=== PATIENT | male | born 1990 | race Caucasian/White ===

== ENCOUNTER 2018-03-14 01:59 | Observation (INO) | payer BC ==
--- NOTE | 2018-03-14 02:19 | CPEKG ---
Heart Rate: 105 RR Interval: 571 P-R Interval: 156 QRSD Interval: 98 QT Interval: 328 QTC Interval: 434 P [place]: 58 QRS [place]: 18 T Wave [place]: 27 EKG Severity - OTHERWISE NORMAL ECG - EKG Impression: SINUS TACHYCARDIA Electronically Signed By: Sweta Roman 14-Mar-2018 05:57:02
[2018-03-14 02:34] LABS: PLATELET COUNT 239 10^3/uL (150-400)
[2018-03-14] MEDS ORDERED: IPRATROPIUM/ALBUTEROL 3 ML DEYVIAL IH ONE (02:35)
--- NOTE | 2018-03-14 02:44 | EDPHY ---
H & P Stated Complaint: SOB TODAY, CHEST PAIN ON INSPIRATION Time Seen by Provider: 03/14/18 02:15 HPI/ROS: HPI The patient presents with chest pain and shortness of breath which has been present for the last approximately 1 day. He began to notice it while at rest yesterday afternoon. It became progressively worse over the course of the day and is worse with exertion such is walking 1 block. This is associated with pleuritic chest pain which he feels in his anterior, left greater than right chest. He has not been coughing, he does not have any rhinorrhea or sore throat. He denies any fever. He took an airplane here from [place] 2 days ago. Prior to this he was suffering from diarrhea which is now resolved. He denies any leg swelling. He does not have any personal or family history of DVT or PE.. REVIEW OF SYSTEMS Constitutional: No fever, no chills. Eyes: No discharge. ENT: No sore throat. Cardiovascular: Positive for chest pain, no palpitations. Respiratory: No cough, positive for shortness of breath. Gastrointestinal: No abdominal pain, no vomiting. Genitourinary: No hematuria. Musculoskeletal: No back pain. Skin: No rashes. Neurological: No headache. PMHx: Healthy Soc Hx: Nonsmoker, no drug use, visiting from [place] Family history: No CAD, no DVT or PE PHYSICAL General Appearance: Alert, no distress Eyes: Pupils equal and round no pallor or injection ENT, Mouth: Mucous membranes moist Respiratory: There are no retractions, lungs are clear to auscultation Cardiovascular: Tachycardic rate and regular rhythm Gastrointestinal: Abdomen is soft and non-tender, no masses, bowel sounds normal Neurological: A&O, moves all extremities Skin: Warm and dry, no rashes Musculoskeletal: Neck is supple non tender Extremities: symmetrical, full range of motion Psychiatric: Patient is oriented X 3, there is no agitation Source: Patient Exam Limitations: No limitations - Personal History Current Tetanus/Diphtheria Vaccine: Unsure - Medical/Surgical History Hx Asthma: No Hx Chronic Respiratory Disease: No Hx Diabetes: No Hx Cardiac Disease: No Hx Renal Disease: No Hx Cirrhosis: No Hx Alcoholism: No Hx HIV/AIDS: No Hx Splenectomy or Spleen Trauma: No Other PMH: CYST ON SHOULDER - Social History Smoking Status: Never smoked Constitutional: Initial Vital Signs Temperature (C) 37.2 C 03/14/18 02:02 Heart Rate 107 H 03/14/18 02:02 Respiratory Rate 22 H 03/14/18 02:02 Blood Pressure 101/64 03/14/18 02:02 O2 Sat (%) 95 03/14/18 02:02 O2 Delivery Mode Room Air O2 (L/minute) 2 Allergies/Adverse Reactions: No Known Allergies Allergy (Unverified 03/14/18 02:02) Medical Decision Making - Diagnostics EKG Interpretation: EKG: Complete interpretation has been separately recorded in the [facility] archive. Summary impression: Sinus tachycardia leftward axis deviation,, normal intervals, ST segment elevation in V2 with slight [place] elevation in AVR Imaging Results: Chest x-ray two view shows no cardiomegaly, no effusion, no infiltrate, interpreted by me, radiology interpretation is pending. Imaging: I viewed and interpreted images myself Procedures: Bedside cardiac Ultrasound- performed and interpreted by me. Indication: Chest pain, positive troponin Findings: Normal cardiac activity, no pericardial effusion, no B lines Impression: No pericardial effusion Differential Diagnosis: This is a 27-year-old healthy male who presents with about 1 day of shortness of breath and pleuritic chest pain. He was sick with a diarrheal illness a few days ago. He had an airplane ride 2 days ago. On exam, he is slightly uncomfortable appearing, he is somewhat tachypneic, with an otherwise normal exam. Differential diagnosis includes pulmonary embolism, pericarditis, myocarditis, pneumonia, pneumothorax. In the emergency department, labs were checked as and were revealing for leukocytosis with left shift as well as elevated troponin. D-dimer was negative. Chest x-ray was unremarkable without any infiltrate. I feel he is likely suffering from myocarditis. I have explained this to him. Given his elevated troponin, I feel he should be admitted to the hospital for serial cardiac enzymes as well as formal echocardiogram. I have discussed the case with the hospitalist Dr. Ramirez who will admit the patient. - Data Points Laboratory Results: Laboratory Results 03/14/18 02:31 03/14/18 02:31 03/14/18 03/14/18 03/14/18 02:31 02:31 02:31 WBC 14.08 10^3/uL H 10^3/uL (3.80-9.50) RBC 4.72 10^6/uL 10^6/uL (4.40-6.38) Hgb 14.0 g/dL g/dL (13.7-17.5) Hct 40.2 % % (40.0-51.0) MCV 85.2 fL fL (81.5-99.8) MCH 29.7 pg pg (27.9-34.1) MCHC 34.8 g/dL g/dL (32.4-36.7) RDW 12.9 % % (11.5-15.2) Plt Count 239 10^3/uL 10^3/uL (150-400) MPV 10.2 fL fL (8.7-11.7) Neut % (Auto) 78.7 % H % (39.3-74.2) Lymph % (Auto) 8.7 % L % (15.0-45.0) [place] % (Auto) 11.8 % % (4.5-13.0) Eos % (Auto) 0.0 % L % (0.6-7.6) Baso % (Auto) 0.4 % % (0.3-1.7) Nucleat RBC Rel Count 0.9 % H % (0.0-0.2) Absolute Neuts (auto) 11.09 10^3/uL H 10^3/uL (1.70-6.50) Absolute Lymphs (auto) 1.22 10^3/uL 10^3/uL (1.00-3.00) Absolute Monos (auto) 1.66 10^3/uL H 10^3/uL (0.30-0.80) Absolute Eos (auto) 0.00 10^3/uL L 10^3/uL (0.03-0.40) Absolute Basos (auto) 0.06 10^3/uL 10^3/uL (0.02-0.10) Absolute Nucleated RBC 0.13 10^3/uL H 10^3/uL (0-0.01) Immature Gran % 0.4 % % (0.0-1.1) Immature Gran # 0.05 10^3/uL 10^3/uL (0.00-0.10) D-Dimer < 0.27 ug/mLFEU ug/mLFEU (0.00-0.50) Sodium 141 mEq/L mEq/L (135-145) Potassium 3.4 mEq/L L mEq/L (3.5-5.2) Chloride 100 mEq/L mEq/L (97-110) Carbon Dioxide 25 mEq/l mEq/l (22-31) Anion Gap 16 mEq/L mEq/L (8-16) BUN 6 mg/dL L mg/dL (7-23) Creatinine 0.7 mg/dL mg/dL (0.7-1.3) Estimated GFR > 60 Glucose 110 mg/dL H mg/dL (70-100) Calcium 9.2 mg/dL mg/dL (8.5-10.4) Total Bilirubin 1.0 mg/dL mg/dL (0.1-1.4) AST 35 IU/L IU/L (17-59) ALT 111 IU/L H IU/L (21-72) Alkaline Phosphatase 91 IU/L IU/L (38-126) Troponin I 0.205 ng/mL H ng/mL (0.000-0.034) NT-Pro-B Natriuret Pep Total Protein 7.2 g/dL g/dL (6.3-8.2) Albumin 4.2 g/dL g/dL (3.5-5.0) 03/14/18 02:20 WBC RBC Hgb Hct MCV MCH MCHC RDW Plt Count MPV Neut % (Auto) Lymph % (Auto) [place] % (Auto) Eos % (Auto) Baso % (Auto) Nucleat RBC Rel Count Absolute Neuts (auto) Absolute Lymphs (auto) Absolute Monos (auto) Absolute Eos (auto) Absolute Basos (auto) Absolute Nucleated RBC Immature Gran % Immature Gran # D-Dimer Sodium Potassium Chloride Carbon Dioxide Anion Gap BUN Creatinine Estimated GFR Glucose Calcium Total Bilirubin AST ALT Alkaline Phosphatase Troponin I NT-Pro-B Natriuret Pep 390 pg/mL H pg/mL (0-125) Total Protein Albumin Medications Given: Discontinued Medications Albuterol/Ipratropium (Duoneb) 3 ml IH EDNOW ONE Stop: 03/14/18 02:36 Last Admin: 03/14/18 03:01 Dose: 3 ml Aspirin (Aspirin) 325 mg PO EDNOW ONE Stop: 03/14/18 03:14 Last Admin: 03/14/18 03:26 Dose: 325 mg Ketorolac Tromethamine (Toradol) 15 mg IVP EDNOW ONE Stop: 03/14/18 03:41 Last Admin: 03/14/18 03:48 Dose: 15 mg Departure - Departure Disposition: [facility] Inpatient Acute Clinical Impression: Shortness of breath, Elevated troponin Chest pain Qualifiers: Chest pain type: chest pain on breathing Qualified Code(s): R07.1 - Chest pain on breathing; R07.81 - Pleurodynia Condition: Fair
[2018-03-14] MEDS ORDERED: ASPIRIN 325 MG TAB PO ONE (03:13)
[2018-03-14] MEDS ORDERED: KETOROLAC 15 MG/1 ML SDV IVP ONE (03:40)
[2018-03-14] MEDS ORDERED: ACETAMINOPHEN 325 MG TAB PO PRN (03:57)
[2018-03-14] MEDS ORDERED: ONDANSETRON 4 MG/2 ML VIAL IVP PRN (03:57)
[2018-03-14] MEDS ORDERED: ONDANSETRON DISINTEGRATING 4 MG TAB PO PRN (03:57)
--- NOTE | 2018-03-14 04:27 | PDGENHP ---
History and Physical - Chief Complaint Chest pain, SOB - History of Present Illness 27 yo M w/ no PMHx presents w/ chest pain or shortness of breath. He is visiting from [place] and noticed chest pain and shortness of breath while riding in the car today. The pain is central and exacerbated by change in position. It is also worse when he takes a deep breath. He denies recent URI symptoms but did have a stomach bug 2 days ago. He denies any personal medical history or family history of heart disease. History Information - Allergies/Home Medication List Allergies/Adverse Reactions: No Known Allergies Allergy (Unverified 03/14/18 02:02) I have personally reviewed and updated: family history, medical history - Past Medical History no pertinent PMH - Surgical History Reports: no pertinent surgical hx - Family History Additional family history: Denies family hx of heart disease - Social History Smoking Status: Never smoked Review of Systems Review of Systems: ROS: 10pt was reviewed & negative except for what was stated in HPI & below Physical Exam Physical Exam: Temp Pulse Resp BP Pulse Ox 37.2 C 96 20 112/65 97 03/14/18 02:02 03/14/18 04:00 03/14/18 04:00 03/14/18 04:00 03/14/18 04:00 O2 (L/minute) 2 Constitutional: no apparent distress, not in pain Eyes: PERRL, EOMI Ears, Nose, Mouth, Throat: moist mucous membranes, no oral mucosal ulcers Cardiovascular: regular rate and rhythym, no murmur, rub, or gallop Respiratory: no respiratory distress, no rales or rhonchi Gastrointestinal: normoactive bowel sounds, soft, non-tender abdomen Skin: warm, normal color Musculoskeletal: full muscle strength, no muscle tenderness Neurologic: AAOx3, CN II-XII Intact Psychiatric: interacting appropriately, not anxious Lab Data & Imaging Review 03/14/18 02:31 03/14/18 02:31 WBC 14.08 10^3/uL (3.80-9.50) H 03/14/18 02:31 RBC 4.72 10^6/uL (4.40-6.38) 03/14/18 02:31 Hgb 14.0 g/dL (13.7-17.5) 03/14/18 02:31 Hct 40.2 % (40.0-51.0) 03/14/18 02:31 MCV 85.2 fL (81.5-99.8) 03/14/18 02:31 MCH 29.7 pg (27.9-34.1) 03/14/18 02:31 MCHC 34.8 g/dL (32.4-36.7) 03/14/18 02:31 RDW 12.9 % (11.5-15.2) 03/14/18 02:31 Plt Count 239 10^3/uL (150-400) 03/14/18 02:31 MPV 10.2 fL (8.7-11.7) 03/14/18 02:31 Neut % (Auto) 78.7 % (39.3-74.2) H 03/14/18 02:31 Lymph % (Auto) 8.7 % (15.0-45.0) L 03/14/18 02:31 [place] % (Auto) 11.8 % (4.5-13.0) 03/14/18 02:31 Eos % (Auto) 0.0 % (0.6-7.6) L 03/14/18 02:31 Baso % (Auto) 0.4 % (0.3-1.7) 03/14/18 02:31 Nucleat RBC Rel Count 0.9 % (0.0-0.2) H 03/14/18 02:31 Absolute Neuts (auto) 11.09 10^3/uL (1.70-6.50) H 03/14/18 02:31 Absolute Lymphs (auto) 1.22 10^3/uL (1.00-3.00) 03/14/18 02:31 Absolute Monos (auto) 1.66 10^3/uL (0.30-0.80) H 03/14/18 02:31 Absolute Eos (auto) 0.00 10^3/uL (0.03-0.40) L 03/14/18 02:31 Absolute Basos (auto) 0.06 10^3/uL (0.02-0.10) 03/14/18 02:31 Absolute Nucleated RBC 0.13 10^3/uL (0-0.01) H 03/14/18 02:31 Immature Gran % 0.4 % (0.0-1.1) 03/14/18 02:31 Immature Gran # 0.05 10^3/uL (0.00-0.10) 03/14/18 02:31 D-Dimer < 0.27 ug/mLFEU (0.00-0.50) 03/14/18 02:31 Sodium 141 mEq/L (135-145) 03/14/18 02:31 Potassium 3.4 mEq/L (3.5-5.2) L 03/14/18 02:31 Chloride 100 mEq/L (97-110) 03/14/18 02:31 Carbon Dioxide 25 mEq/l (22-31) 03/14/18 02:31 Anion Gap 16 mEq/L (8-16) 03/14/18 02:31 BUN 6 mg/dL (7-23) L 03/14/18 02:31 Creatinine 0.7 mg/dL (0.7-1.3) 03/14/18 02:31 Estimated GFR > 60 03/14/18 02:31 Glucose 110 mg/dL (70-100) H 03/14/18 02:31 Calcium 9.2 mg/dL (8.5-10.4) 03/14/18 02:31 Total Bilirubin 1.0 mg/dL (0.1-1.4) 03/14/18 02:31 AST 35 IU/L (17-59) 03/14/18 02:31 ALT 111 IU/L (21-72) H 03/14/18 02:31 Alkaline Phosphatase 91 IU/L (38-126) 03/14/18 02:31 Troponin I 0.205 ng/mL (0.000-0.034) H 03/14/18 02:31 NT-Pro-B Natriuret Pep 390 pg/mL (0-125) H 03/14/18 02:20 Total Protein 7.2 g/dL (6.3-8.2) 03/14/18 02:31 Albumin 4.2 g/dL (3.5-5.0) 03/14/18 02:31 Visualized and Interpreted Chest x-ray results: Yes Chest X-Ray results: no infiltrate Visualized and Interpreted EKG results: Yes EKG Interpretation: Positive for: normal sinsus rhythm, other (Sinust tach; JACQUELYN V2, J-point elevation V3, not meeting criteria for STEMI) Assessment & Plan Assessment: 27 yo M p/w CP and SOB; found to have elevated troponin and abnormal ECG in what likely represents myopericarditis. Plan: 1. Chest pain - I suspect myopericarditis based on positional and pleuritic nature of pain along with elevated troponin and abnormal ECG. Patient has no hx of congenital heart dz and denies family hx of heart disease as well. He had a diarrheal illness over the last few days, which may represent evidence of a viral trigger. - Admit for observation - Monitor on telemetry, trend cardiac enzymes - TTE ordered for evaluation of cardiac structure and function - NSAIDs PRN for pain 2. Elevated troponin - Likely related to process driving above, will trend. 3. Leukocytosis - Further evidence of inflammation. Will monitor off on antibiotics. Diet - Regular Code - Full Ppx - Low risk Dispo - Admit under observation status
[2018-03-14] MEDS: KETOROLAC 15 MG/1 ML SDV IVP SCH ×2 (09:16→13:26)
--- NOTE | 2018-03-14 10:19 | ECHO ---
[email or web address] [address] [address] Main: [phone] Fax: [email or web address] Echocardiogram Name: YOLI GOULD MR#: [id number] Study Date: 03/14/2018 Study Time: 08:48 AM Date of : 1990 Age: 27 year(s) Height: 157.5 cm (62 in.) Weight: 81.65 kg (180 lb.) BSA: 1.83 m2 Gender: Male Examination: Echo Indication: VASQUEZ/elevated troponin Image Quality: Contrast: Requested by: Adam Hess BP: 103 mmHg/63 mmHg Heart Rate: Rhythm: Indication: VASQUEZ/elevated troponin Procedure Staff Supply Planner: Estela Flores RDCS Reading Physician: Javier Cadena MD Requesting Provider: Conclusions: Normal size left ventricle. No LV hypertrophy. Normal global systolic LV function. The ejection fraction is estimated to be 65-70 %. No regional wall motion abnormality. Normal size right ventricle. The left atrium is normal in size. The right atrium is normal in size. The mitral valve is normal in appearance and function. Trivial mitral valve regurgitation. The aortic valve is normal in appearance and function. The aortic valve is tri-leaflet. There is no aortic valve regurgitation. The tricuspid valve is normal in appearance and function. Mild tricuspid regurgitation is present. The pulmonary artery pressure is normal. Trivial pulmonic valve regurgitation. The aorta is normal. Measurements: Chambers Valvular Assessment AV/MV Valvular Assessment TV/PV Normal Normal Normal Name Value Range Name Value Range Name Value Range Ao Tatyana (MM): 3.5 cm (2.2 cm-3.7 AV meanP mmHg ( - ) TR Vmax: 2.04 mm/s ( - ) cm) MV E Vmax: 0.83 m/s ( - ) TR PGmax: 17 mmHg ( - ) IVSd (2D): 0.5 cm (0.6 cm-1.1 MV A Vmax: 0.44 m/s ( - ) syst. PAP: 22 mmHg ( - ) cm) MV E/A: 1.89 ( - ) LVDd (2D): 5.6 cm (4.2 cm-5.9 cm) Patient: YOLI GOULD Study Date: 03/14/2018 Page 1 of 2 08:48 AM LVDs (2D): 3.7 cm (2.1 cm-4 cm) LVPWd (2D): 0.7 cm (0.6 cm-1 cm) LVEF (MOD4): 64 % (>=55 %) EF Range: 65-70 % Continued Measurements: Chambers Valvular Assessment AV/MV Valvular Assessment TV/PV Name Value Name Value Name Value LADs: 3.3 cm MV E' Septal: 0.10 m/s CVP (est.): 5 mmHg LADs Lon.3 cm MV E/E' Septal: 8.40 LA Area: 17.3 cm2 MV E/E' Lateral: 4.30 Findings: Left Ventricle: Normal size left ventricle. No LV hypertrophy. Normal global systolic LV function. The ejection fraction is estimated to be 65-70 %. No regional wall motion abnormality. Right Ventricle: Normal size right ventricle. Left Atrium: The left atrium is normal in size. Right Atrium: The right atrium is normal in size. Mitral Valve: The mitral valve is normal in appearance and function. Trivial mitral valve regurgitation. Aortic Valve: The aortic valve is normal in appearance and function. The aortic valve is tri-leaflet. There is no aortic valve regurgitation. Tricuspid Valve: The tricuspid valve is normal in appearance and function. Mild tricuspid regurgitation is present. The pulmonary artery pressure is normal. Pulmonic Valve: The pulmonic valve is normal in appearance and function. Trivial pulmonic valve regurgitation. Aorta: The aorta is normal. Pericardium: No pericardial effusion. (No Signature Object) Patient: YOLI GOULD Study Date: 03/14/2018 Page 2 of 2 08:48 AM [id number]
[2018-03-14 11:28] VITALS: BP 104/65
[2018-03-14] MEDS ORDERED: NITROGLYCERIN 0.4 MG BTL SL PRN (11:29)
[2018-03-14] MEDS ORDERED: ASPIRIN 325 MG TAB PO SCH (11:30)
--- NOTE | 2018-03-14 11:51 | CPEKG ---
Heart Rate: 79 RR Interval: 759 P-R Interval: 156 QRSD Interval: 92 QT Interval: 372 QTC Interval: 427 P [place]: 69 QRS [place]: 7 T Wave [place]: 29 EKG Severity - NORMAL ECG - EKG Impression: SINUS RHYTHM EKG Impression: ST ELEV, PROBABLE NORMAL EARLY REPOL PATTERN Electronically Signed By: Fide Lewis 14-Mar-2018 13:35:09
--- NOTE | 2018-03-14 13:10 | GCON ---
[f rep st] CONSULTATION DATE OF CONSULTATION: 03/14/2018 INDICATIONS: Chest pain. HISTORY OF PRESENT ILLNESS: The patient is visiting from [place], [place]. He, on Thursday, had some stomach discomfort with diarrhea and today on Thursday, he is in the hospital. He started having ches t pain yesterday and it was atypical chest pain. It would hurt when he would lie down, it would hurt a little bit when he would lean forward. Food did not seem to have a big impact on it and other pos itions did not either. It was not related to stress or exertion. The pain did not radiate. It was in the center of his chest and he says it has been a constant pain since yesterday morning. He has n ot had this before. He has not had fever chills. He has not had any nausea, vomiting. No weight loss. No pleuritic chest pain. No history of rheumatic disease. No history of headache, stiff neck, sore throat photophobia or trau ma. No viral syndrome. No other symptoms of infection, dysuria, frequency, etc. No sputum production. No shortness of breath. He has no previous experience with this as I mentioned. He does not have rashes arthralgias. He takes no medications. CARDIAC RISK FACTORS: Negative for hypertension, hyperlipidemia, diabetes mellitus, hyperuricemia, o besity, known coronary disease, family history of premature coronary artery disease, hyperuricemia. ALLERGIES: None. SURGICAL HISTORY: Status post cyst removal from the shoulder. MEDICATIONS: At home were none. FAMILY HISTORY: He has no family history of premature coronary artery disease. No history of unexpl ained sudden at a young age. SOCIAL HISTORY: He was born in [place], [place]. He has been here for 3-days. He came up to visit. 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 He does not smoke. He does not drink significant amounts of alcohol. Does not use tobacco. Does not use marijuana. Does not use cocaine. Does not use heroin. He exercises in the gym working out when he has time and does not have any limitations on his exercis ing. REVIEW OF SYSTEMS: 10-point Review of Systems negative except as above. PHYSICAL EXAM: VITAL SIGNS: His blood pressure is 104/65, his heart rate is 89, his respiratory rat e is 12. He is breathing comfortably and afebrile. GENERAL: He is sitting comfortably, cooperative in the hospital bed. HEENT: Pupils are equal. Mucous membranes of mouth moist. NECK: Supple. CA RDIOVASCULAR: S1, S2. No rub. No S3, S4. No murmur. PULMONARY EXAM: Reveals minimal rhonchi luigi aterally. No rales, wheezing, or dullness. ABDOMEN: Soft, nontender, without masses. EXTREMITIES: No edema inflammation or ulceration. NEUROLOGIC EXAM: Intact. PSYCH: No obvious anxiety or depr ession. SKIN: Shows age-related changes. LAB: White count 14,000, platelet count 239, hematocrit 40. D-dimer is negative. Sodium 141, potassium 3.4, chloride 100, CO2 25, BUN 6, creatinine 0.7. Troponin 0.205 gone to 0.739 . BNP 390. Total protein 7.2, albumin 4.2. Echocardiographic study shows no left ventricular hypertrophy. Normal LV systolic function. Aorta i s normal. No other significant abnormalities. EKG shows no CT depression, early repolarization changes in the anterior precordial leads. Chest x-ray shows normal study. ASSESSMENT AND PLAN: Chest pain. The patient has chest pain. He said it feels like an anxiety attack, but he normally does not get an xiety attacks. He feels much better than he did before. If we try to diagnose pericarditis in him, he does not have a friction rub. He has no electrocardiogram evidence or CT depression. He does hav e some ST-segment deviation in the precordial leads. He has nonischemic chest pain. So, he has no p ericardial effusion, no friction rub, no CT depression, but he has some ST-segment deviation. He has some nonischemic chest pain. At this point in time, we could use a presumed diagnosis of pericarditis and send him home on aspirin 650 every 4 to 6 hours or ibuprofen 200 to 400 q.4 to 6 hours. He should take 0.5 mg of colchicine as well in case this is pericarditis to decrease his chances of getting pericarditis again. I have told him he has been stable while he has been here and he can stay overnight if he would like, but otherwise I think he is fine to be discharged today. There are no significant problems with isc hemic disease. There is nothing to suggest heart failure. There is nothing to suggest a significant infection of endocarditis. Pulses are full and equal, nothing to suggest congenital anomalies or di sease of the great vessels. His D-dimer is negative, which helps us preclude pulmonary embolic disea se in this gentleman who just got off of an airplane flight 3-days ago. So, I would have him follow up with his doctors at home and start taking these medications and I thin k he should do very well if he would like to go home. He is thinking he might like to leave and I th ink that is perfectly fine. There is no indication to me that [facility] If he gets home and he feels like he is does not want to get on an airplane and be up in the air for several hours on the way to [place], that he can decide to stay here. He is going to make that d ecision once he gets home, he thinks. He also talked to the hospitalist and will make a plan ricardoethe r. I specifically talked to him about the risk of airplane travel with any kind of issue and that includ es the fact that for 2 to 3 hours, he can be out of easy access to health care. If he has a cardiovascular emergency that is life-threatening, he would not have adequate care in the airplane. However, I have also told him that I do not see that that's a problem for him and he will decide what he wants to do with that. There is nothing to suggest a significant gastrointestinal pathology right now such as major gastroin testinal bleed or early acute abdomen. There is nothing to suggest major pulmonary pathology causing his troubles. His troponins are elevated and that is consistent with pericarditis or myocarditis. He will need to follow with his doctors in [place] or get in touch with the primary care physicians john t work for the hospital on Thursday or Thursday for followup should he still be in town. All his questions have been answered. Thank you very much for asking us to see this interesting gentleman. /[id number]
--- NOTE | 2018-03-14 18:41 | GDS ---
[f rep st] DISCHARGE SUMMARY DISCHARGE DIAGNOSES: 1. Pericarditis, suspect viral induced. 2. Recent viral gastroenteritis. 3. Elevated troponin secondary to pericarditis. HISTORY OF DETAILS: See history and physical dated March 14, 2018. In brief, Mr. Lal is a 27-yea r-old male who is visiting [place] from [place] and presents emergency department with chest pain and shortness of breath. Workup revealed an abnormal EKG with elevated troponin. His presentation is mo st consistent with a myopericarditis. Given the positional and pleuritic nature of his pain, along w ith EKG findings and elevated troponin, he is admitted to the hospital for further management. HOSPITAL COURSE: The patient was admitted to the progressive care unit. Cardiology consult was obta ined and agreed this is most likely a viral pericarditis. It is recommended he be treated with anti- inflammatories, as well as daily colchicine. An echocardiogram performed is negative for pericardial effusion. He had a negative D-dimer making pulmonary embolism unlikely. I recommended he remain ho spitalized overnight for symptom management. 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 His troponin peaked at 0.7. The patient felt strongly about discharging home so he could catch his flight back to [place]. We discussed with him the risks o f airplane travel including the worst case scenario of sudden , though that seems unlikely, as m ost most young patients with pericarditis do just fine. It is recommend that he follow up closely wi th his doctors in [place] upon return. DISPOSITION: Patient is discharged home in stable condition. FOLLOWUP: He should follow up with his primary care physician upon return to [place]. DISCHARGE MEDICATIONS: Please see [facility] for completed outpatient medication list. New medications on discharge include ibuprofen 400 mg p.o. three times daily for 2 weeks and colchici ne 0.6 mg p.o. daily #30; no refills. He will continue his multivitamin, as previously prescribed. /[id number]/MODL
== END 2018-03-14 15:09 | disposition home or self-care (01) ==
LOC: F2W 04:59
PROVIDERS: ADMIT Student in an Organized Health Care Education/Training Program; ATTEND Hospitalist
DX: I30.9 Acute pericarditis, unspecified (principal); Z87.19 Personal history of other diseases of the digestive system
CPT/HCPCS: 71046; 93005; 93306; G0378; 80305; 96374; J1885